=== PATIENT | male | born 1970 | race Hispanic/Latino ===

== ENCOUNTER → 2023-06-29 | Outpatient (CLI) | payer OTHER ==
[~2023-06-29] MED LIST: CARB10DR2 OU; ENAL-91 PO; GABA-531 PO; HYDR25TA PO; METO-391 PO; OMEP40CA21 PO; TRAZ-144 PO
== END | disposition home or self-care (01) ==
LOC: RAH 06-01 07:32
PROVIDERS: ATTEND Student in an Organized Health Care Education/Training Program
DX: M19.011 Primary osteoarthritis, right shoulder (principal); M75.41 Impingement syndrome of right shoulder
CPT/HCPCS: 73221

== ENCOUNTER 2023-08-06 05:55 | Day surgery (SDC) | payer OTHER ==
[2023-08-04 12:06] VITALS: BP 123/78; PULSE 58; RESP 17
[~2023-08-06] VITALS: Ht 172.7 cm; Wt 122.1 kg
[2023-08-06] VITALS (19 sets, daily range): BP systolic 94–139; BP diastolic 53–88; PULSE 53–69; RESP 15–18
[~2023-08-06 05:55] MED LIST changes: +AMLO-258 PO; +ENAL20TA60 PO; +GABA-529 PO; +MELO-108 PO; -METO-391 PO; +METO-408 PO; +NITR0.4T50 SL; +OMEP20TA2 PO; -OMEP40CA21 PO; +TIZA4CAP8 PO; -TRAZ-144 PO
[2023-08-06] MEDS: CEFAZOLIN SODIUM 2 GM VIAL ONE (06:39)
[2023-08-06] MEDS: LACTATED RINGERS 1000ML 1,000 ML IV ONE (06:41)
[2023-08-06] MEDS ORDERED: FAMOTIDINE 20MG VIAL IV ONE (06:45)
[2023-08-06] MEDS ORDERED: ACETAMINOPHEN 1,000 MG/100 ML VIAL IV ONE (06:45)
[2023-08-06] MEDS ORDERED: ROPIVACAINE 0.5% 5MG/ML 30ML ONE (06:47)
[2023-08-06] MEDS ORDERED: KETAMINE 50MG/ML SYRINGE 50 MG/ML DISP.SYRIN ONE (06:47)
[2023-08-06] MEDS ORDERED: LIDOCAINE PF 100MG/5ML (2%) SYRINGE 5ML ONE (06:53)
[2023-08-06] MEDS ORDERED: ROCURONIUM BROMIDE 10MG/1ML 5ML VL ONE ×2 (06:54→07:29)
[2023-08-06] MEDS ORDERED: PROPOFOL 10 MG/ML 20ML VIAL IV ONE (06:54)
[2023-08-06] MEDS ORDERED: FENTANYL CITRATE PF 50 MCG/1 ML 2ML VIAL ONE (06:55)
[2023-08-06] MEDS ORDERED: DEXAMETHASONE SOD PHOSPHATE 10MG/ML 1ML VIAL ONE (07:25)
[2023-08-06] MEDS ORDERED: ONDANSETRON 4MG INJ ONE (07:26)
[2023-08-06] MEDS ORDERED: EPHEDRINE SULFATE 50 MG/ML AMPULE ONE (07:34)
[2023-08-06] MEDS: EPINEPHRINE PF 1MG (1:1,000) 1 MG/ML AMP ONE (08:00)
[2023-08-06] MEDS ORDERED: EPINEPHRINE PF 1MG (1:1,000) 1 MG/ML AMP ONE (09:13)
[2023-08-06] MEDS ORDERED: GLYCOPYRROLATE 0.2 MG/ML 5 ML VIAL ONE (10:05)
[2023-08-06] MEDS ORDERED: NEOSTIGMINE METHYLSULFATE 1MG/ML IV ONE (10:05)
[2023-08-06] MEDS ORDERED: HYDR-4060 PO (10:20)
[2023-08-06] MEDS: ONDANSETRON 4MG INJ ONE (11:25)
== END 2023-08-06 12:20 | disposition home or self-care (01) ==
LOC: DAH 05:55
PROVIDERS: ATTEND Student in an Organized Health Care Education/Training Program
DX: M75.111 Incomplete rotator cuff tear or rupture of right shoulder, not specified as traumatic (principal); M19.011 Primary osteoarthritis, right shoulder; M75.41 Impingement syndrome of right shoulder; M75.21 Bicipital tendinitis, right shoulder; I44.0 Atrioventricular block, first degree; I10 Essential (primary) hypertension; E78.5 Hyperlipidemia, unspecified; K21.9 Gastro-esophageal reflux disease without esophagitis; G47.30 Sleep apnea, unspecified; Z98.890 Other specified postprocedural states; Z82.49 Family history of ischemic heart disease and other diseases of the circulatory system; Z83.3 Family history of diabetes mellitus
CPT/HCPCS: 82040; 36415; 29827; 29826; 93005; 64415; C1713; A4663; J7030; A4565; A4452; J7120; J3490 ×6; J3010; J1100; J2001; J0171 ×2; J2704; J2405 ×2; J2710; J2795; J0690; A6223; A4649; A4215; A4223; A4222; A4221; A4600